=== PATIENT | male | born 1975 | race Caucasian/White ===

== ENCOUNTER 2017-09-05 12:08 | Inpatient (IN) | payer MEDICAID, SELFPAY ==
[2017-09-05] MEDS ORDERED: Octreotide Acetate 1,250 MCG in Sodium Chloride 0.9% 250 ML 250 ML IVPB SCH (12:45)
[2017-09-05] MEDS ORDERED: Sodium Chloride 3% 100 ML IVPB SCH (12:45)
[2017-09-05 12:52] LABS: #Lymphocytes 0.7 thou/uL (1.20-3.40); #Monocytes 0.8 thou/uL (0.11-0.59); #Neutrophils 9.2 thou/uL (1.40-6.50); %Basophils 0.1 % (0.0-1.0); %Eosinophils 0.1 % (0.0-10.0); %Lymphocytes 6.4 % (21.0-51.0); %Monocytes 7.2 % (0.0-10.0); %Neutrophils 86.3 % (42.0-75.0); Hemoglobin 14.1 g/dL (14.0-18.0); Mean Corpuscular HGB CONC 35.2 g/dL (32.0-36.0); Mean Corpuscular Hemoglobin 31.4 pg (27.0-31.0); Mean Corpuscular Volume 89.1 fl (80.0-94.0); Mean Platelet Volume 6.8 fL (7.4-10.4); Platelet Count 128 thou/uL (130-400); RBC Distribution Width 12.4 % (11.5-14.5); Red Blood Cell (RBC) Count 4.49 mill/uL (4.70-6.10); White Blood Cell (WBC) Count 10.7 thou/uL (4.8-10.8)
[2017-09-05] MEDS ORDERED: Pantoprazole 80 MG, Admixture Fee 1 EACH in Sodium Chloride 0.9% 100 ML IVP SCH (13:00)
[2017-09-05 13:08] LABS: Magnesium 1.3 mg/dL (1.6-2.6)
[2017-09-05 13:16] LABS: Troponin I Less than 0.010 ng/mL (< 0.028)
[2017-09-05] MEDS ORDERED: Octreotide Acetate 50 MCG/ML AMP ONE (13:19)
[2017-09-05 13:20] LABS: CKMB 27.8 ng/mL (0-6.6)
[2017-09-05] MEDS ORDERED: Ondansetron HCl/PF 4 MG/2 ML Vial ONE (15:24)
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
[2017-09-05] MEDS ORDERED: Dextrose 50% Abboject 50 ML SYRINGE SLOW IVP PRN (16:01)
[2017-09-05] MEDS ORDERED: Acetaminophen 325 MG TAB PO PRN (16:01)
[2017-09-05] MEDS ORDERED: HumaLOG 300 UNITS/3 ML VIAL SC PRN (16:01)
[2017-09-05] MEDS ORDERED: Dextrose 5% in Water 1,000 ML IV PRN (16:01)
[2017-09-05] MEDS ORDERED: Labetalol HCl 100 MG/20 ML VIAL SLOW IVP PRN (16:01)
[2017-09-05] MEDS ORDERED: hydrALAZINE 20 MG/ML VIAL SLOW IVP PRN (16:01)
[2017-09-05 17:05] VITALS: BMI 28.5
[2017-09-05 17:40] LABS: Hemoglobin 14.7 g/dL (14.0-18.0); Platelet Count 140 thou/uL (130-400)
[2017-09-05 18:03] LABS: Anion Gap 17 mmol/L (10-20); BUN (Urea Nitrogen) 7 mg/dL (8.9-20.6); Calc. Creatinine Clearance 214 mL/min (70-130); Calcium 7.2 mg/dL (7.8-10.44); Carbon Dioxide 18 mmol/L (22-29); Chloride 85 mmol/L (98-107); Estimated GFR-MDRD Greater than 90; Glucose 111 mg/dL (70-105)
[2017-09-05 18:15] LABS: Sodium 115 mmol/L (136-145)
[2017-09-05] MEDS: Multivitamins, Adult 10 ML, Folic Acid 1 MG, Thiamine HCl 100 MG in Dextrose 5 %-0.45 %... IV SCH (18:38)
[2017-09-05] MEDS: Sodium Chloride 0.9% 1,000 ML IV SCH (18:42)
[2017-09-05] MEDS: Ondansetron HCl/PF 4 MG/2 ML Vial IVP PRN (20:18)
[2017-09-05] MEDS: Pantoprazole 40 MG VIAL IVP SCH (20:18)
[2017-09-05] MEDS: Lorazepam 2 MG/ML VIAL SLOW IVP PRN (21:20)
[2017-09-05 21:59] LABS: Anion Gap 17 mmol/L (10-20); BUN (Urea Nitrogen) 7 mg/dL (8.9-20.6); Calc. Creatinine Clearance 198 mL/min (70-130); Calcium 7.1 mg/dL (7.8-10.44); Carbon Dioxide 19 mmol/L (22-29); Chloride 85 mmol/L (98-107); Estimated GFR-MDRD Greater than 90; Glucose 163 mg/dL (70-105); Potassium 4.4 mmol/L (3.5-5.1)
[2017-09-05 22:05] LABS: Sodium 117 mmol/L (136-145)
[2017-09-05 23:58] LABS: Hemoglobin 13.9 g/dL (14.0-18.0); Platelet Count 119 thou/uL (130-400)
[2017-09-06 01:28] LABS: Anion Gap 14 mmol/L (10-20); BUN (Urea Nitrogen) 6 mg/dL (8.9-20.6); Calc. Creatinine Clearance 192 mL/min (70-130); Calcium 7.2 mg/dL (7.8-10.44); Carbon Dioxide 22 mmol/L (22-29); Chloride 86 mmol/L (98-107); Estimated GFR-MDRD Greater than 90; Glucose 120 mg/dL (70-105); Potassium 4.2 mmol/L (3.5-5.1)
[2017-09-06 01:52] LABS: Sodium 118 mmol/L (136-145)
[2017-09-06] MEDS: Ondansetron HCl/PF 4 MG/2 ML Vial IVP PRN ×3 (01:52→17:53)
[2017-09-06] MEDS: Lorazepam 2 MG/ML VIAL SLOW IVP PRN ×4 (02:05→22:53)
[2017-09-06] MEDS: Sodium Chloride 0.9% 1,000 ML IV SCH ×3 (02:10→16:22)
[2017-09-06 05:25] LABS: #Lymphocytes 1.6 thou/uL (1.20-3.40); %Basophils 0.4 % (0.0-1.0); %Eosinophils 0.2 % (0.0-10.0); %Lymphocytes 16.6 % (21.0-51.0); %Monocytes 10.3 % (0.0-10.0); %Neutrophils 72.6 % (42.0-75.0); Hemoglobin 13.6 g/dL (14.0-18.0); Mean Corpuscular HGB CONC 35.8 g/dL (32.0-36.0); Mean Corpuscular Hemoglobin 31.9 pg (27.0-31.0); Mean Corpuscular Volume 89.1 fl (80.0-94.0); Mean Platelet Volume 6.9 fL (7.4-10.4); Platelet Count 112 thou/uL (130-400); RBC Distribution Width 12.4 % (11.5-14.5); Red Blood Cell (RBC) Count 4.27 mill/uL (4.70-6.10); White Blood Cell (WBC) Count 9.7 thou/uL (4.8-10.8)
[2017-09-06 05:49] LABS: Anion Gap 11 mmol/L (10-20); BUN (Urea Nitrogen) 4 mg/dL (8.9-20.6); Calc. Creatinine Clearance 195 mL/min (70-130); Calcium 7.4 mg/dL (7.8-10.44); Carbon Dioxide 26 mmol/L (22-29); Chloride 87 mmol/L (98-107); Estimated GFR-MDRD Greater than 90; Glucose 100 mg/dL (70-105); Potassium 4.1 mmol/L (3.5-5.1); Sodium 120 mmol/L (136-145)
--- NOTE | 2017-09-06 08:12 | PDOC.PN ---
- Subjective Encounter Start Date: 09/06/17 Encounter Start Time: 08:10 Subjective: "so so", calm - Objective MAR Reviewed: Yes Vital Signs & Weight: Vital Signs (12 hours) Temp Pulse Resp BP BP Pulse Ox 09/06/17 04:00 98.2 F 102 H 18 127/76 127/76 93 L 09/06/17 00:00 98.1 F 107 H 20 131/82 131/82 95 09/05/17 21:17 107/65 Weight Weight 216 lb 1 oz I&O: 09/05/17 09/06/17 09/07/17 06:59 06:59 06:59 Output Total 3000 Balance -3000 Result Diagrams: 09/06/17 05:11 09/06/17 05:10 Additional Labs: Accuchecks 09/06/17 09/05/17 09/05/17 04:46 20:15 16:58 POC Glucose 101 142 H 113 H Phys Exam - Physical Examination Neck: no JVD Respiratory: clear to auscultation bilateral Cardiovascular: RRR, no significant murmur Gastrointestinal: soft, non-tender, positive bowel sounds Musculoskeletal: no edema Dx/Plan (1) Hyponatremia Code(s): E87.1 - HYPO-OSMOLALITY AND HYPONATREMIA Status: Acute (2) AA (alcohol abuse) Code(s): F10.10 - ALCOHOL ABUSE, UNCOMPLICATED Status: Acute (3) HTN (hypertension) Code(s): I10 - ESSENTIAL (PRIMARY) HYPERTENSION Status: Chronic Qualifiers: Hypertension type: essential hypertension Qualified Code(s): I10 - Essential (primary) hypertension (4) DM type 2 (diabetes mellitus, type 2) Status: Chronic Qualifiers: Diabetes mellitus terminal clerk insulin use: without terminal clerk use Diabetes mellitus complication status: without complication Qualified Code(s): E11.9 - Type 2 diabetes mellitus without complications - Plan monitor for withdrawal, cont ativan, banana bag -: advance diet, monitor Na -: cont accu/ss/ check HgA1c -: check AM cortisol level -: hemeoccult neg- no GI JOSÉ at this time * .
[2017-09-06] MEDS: Pantoprazole 40 MG VIAL IVP SCH (08:20)
[2017-09-06 08:30] LABS: Hemoglobin A1c 6.5 % (4.0-6.0)
[2017-09-06 09:40] LABS: Anion Gap 12 mmol/L (10-20); BUN (Urea Nitrogen) 4 mg/dL (8.9-20.6); Calc. Creatinine Clearance 207 mL/min (70-130); Calcium 7.4 mg/dL (7.8-10.44); Carbon Dioxide 25 mmol/L (22-29); Chloride 88 mmol/L (98-107); Estimated GFR-MDRD Greater than 90; Glucose 113 mg/dL (70-105); Potassium 3.9 mmol/L (3.5-5.1); Sodium 121 mmol/L (136-145)
[2017-09-06 14:02] LABS: Anion Gap 10 mmol/L (10-20); BUN (Urea Nitrogen) 5 mg/dL (8.9-20.6); Calc. Creatinine Clearance 201 mL/min (70-130); Calcium 7.9 mg/dL (7.8-10.44); Carbon Dioxide 26 mmol/L (22-29); Chloride 93 mmol/L (98-107); Estimated GFR-MDRD Greater than 90; Glucose 110 mg/dL (70-105); Potassium 3.9 mmol/L (3.5-5.1); Sodium 125 mmol/L (136-145)
[2017-09-06] MEDS: Multivitamins, Adult 10 ML, Folic Acid 1 MG, Thiamine HCl 100 MG in Dextrose 5 %-0.45 %... IV SCH (17:47)
[2017-09-07] MEDS: Sodium Chloride 0.9% 1,000 ML IV SCH ×3 (00:25→22:00)
[2017-09-07] MEDS: Ondansetron HCl/PF 4 MG/2 ML Vial IVP PRN ×4 (00:27→20:02)
[2017-09-07] MEDS: Lorazepam 2 MG/ML VIAL SLOW IVP PRN ×5 (03:40→21:41)
[2017-09-07 05:33] LABS: Anion Gap 12 mmol/L (10-20); BUN (Urea Nitrogen) 5 mg/dL (8.9-20.6); Calc. Creatinine Clearance 161 mL/min (70-130); Calcium 8.1 mg/dL (7.8-10.44); Carbon Dioxide 22 mmol/L (22-29); Chloride 97 mmol/L (98-107); Estimated GFR-MDRD Greater than 90; Glucose 209 mg/dL (70-105); Potassium 3.8 mmol/L (3.5-5.1); Sodium 127 mmol/L (136-145)
--- NOTE | 2017-09-07 11:33 | PDOC.PN ---
- Subjective Encounter Start Date: 09/07/17 Encounter Start Time: 11:31 Subjective: still a bit tremuluos, oriented - Objective MAR Reviewed: Yes Vital Signs & Weight: Vital Signs (12 hours) Temp Pulse Resp BP BP BP Pulse Ox 09/07/17 08:00 98.5 F 94 16 130/86 96 09/07/17 04:00 97.9 F 94 18 124/79 94 L 09/07/17 00:00 98.2 F 99 18 115/78 115/78 96 Weight Admit Weight 216 lb 1 oz Weight 216 lb 1 oz I&O: 09/06/17 09/07/17 09/08/17 06:59 06:59 06:59 Intake Total 3690 Output Total 7511 5468 Balance -3000 -0062 Result Diagrams: 09/06/17 05:11 09/07/17 04:42 Additional Labs: Accuchecks 09/06/17 09/06/17 09/06/17 20:50 17:05 11:47 POC Glucose 184 H 154 H 112 H Phys Exam - Physical Examination Neck: no JVD Respiratory: clear to auscultation bilateral Cardiovascular: RRR, no significant murmur Gastrointestinal: soft, non-tender, positive bowel sounds Musculoskeletal: no edema Dx/Plan (1) Hyponatremia Code(s): E87.1 - HYPO-OSMOLALITY AND HYPONATREMIA Status: Acute (2) AA (alcohol abuse) Code(s): F10.10 - ALCOHOL ABUSE, UNCOMPLICATED Status: Acute (3) HTN (hypertension) Code(s): I10 - ESSENTIAL (PRIMARY) HYPERTENSION Status: Chronic Qualifiers: Hypertension type: essential hypertension Qualified Code(s): I10 - Essential (primary) hypertension (4) DM type 2 (diabetes mellitus, type 2) Status: Chronic Qualifiers: Diabetes mellitus long-term insulin use: without watermaster use Diabetes mellitus complication status: without complication Qualified Code(s): E11.9 - Type 2 diabetes mellitus without complications - Plan cont iv saline -: start po ativan, thiamine, folic acid * .
[2017-09-07] MEDS: Lorazepam 0.5 MG TAB PO SCH ×3 (13:41→20:01)
[2017-09-08] MEDS: Ondansetron HCl/PF 4 MG/2 ML Vial IVP PRN ×4 (02:02→20:28)
[2017-09-08] MEDS: Lorazepam 2 MG/ML VIAL SLOW IVP PRN ×4 (02:05→23:34)
[2017-09-08 06:00] LABS: Anion Gap 9 mmol/L (10-20); BUN (Urea Nitrogen) 4 mg/dL (8.9-20.6); Calc. Creatinine Clearance 184 mL/min (70-130); Calcium 8.3 mg/dL (7.8-10.44); Carbon Dioxide 26 mmol/L (22-29); Chloride 96 mmol/L (98-107); Estimated GFR-MDRD Greater than 90; Glucose 241 mg/dL (70-105); Potassium 3.6 mmol/L (3.5-5.1); Sodium 127 mmol/L (136-145)
[2017-09-08] MEDS: Lorazepam 0.5 MG TAB PO SCH ×3 (08:31→20:36)
[2017-09-08] MEDS: Folic Acid 1 MG TAB PO SCH (08:31)
--- NOTE | 2017-09-08 10:17 | PDOC.PN ---
- Subjective Encounter Start Date: 09/08/17 Encounter Start Time: 10:15 Subjective: still tremulous at times, requiring iv ativan, still has some nausea - Objective MAR Reviewed: Yes Vital Signs & Weight: Vital Signs (12 hours) Temp Pulse Resp BP BP Pulse Ox 09/08/17 07:24 98.4 F 97 18 150/95 H 97 09/08/17 04:00 97.4 F L 94 20 137/83 94 L 09/08/17 00:00 150/94 H Weight Admit Weight 216 lb 1 oz Weight 216 lb 1 oz I&O: 09/07/17 09/08/17 09/09/17 06:59 06:59 06:59 Intake Total 3690 3606 Output Total 5452 Balance -1762 3606 Result Diagrams: 09/06/17 05:11 09/08/17 05:15 Additional Labs: Accuchecks 09/08/17 09/07/17 09/07/17 05:14 20:31 16:28 POC Glucose 246 H 184 H 194 H 09/07/17 11:42 POC Glucose 146 H Phys Exam - Physical Examination Constitutional: NAD Neck: no JVD Respiratory: clear to auscultation bilateral Cardiovascular: RRR, no significant murmur Gastrointestinal: soft, non-tender, no distention, positive bowel sounds Musculoskeletal: no edema Dx/Plan (1) Hyponatremia Code(s): E87.1 - HYPO-OSMOLALITY AND HYPONATREMIA Status: Acute (2) AA (alcohol abuse) Code(s): F10.10 - ALCOHOL ABUSE, UNCOMPLICATED Status: Acute (3) HTN (hypertension) Code(s): I10 - ESSENTIAL (PRIMARY) HYPERTENSION Status: Chronic Qualifiers: Hypertension type: essential hypertension Qualified Code(s): I10 - Essential (primary) hypertension (4) DM type 2 (diabetes mellitus, type 2) Status: Chronic Qualifiers: Diabetes mellitus equine breeder insulin use: without custodial use Diabetes mellitus complication status: without complication Qualified Code(s): E11.9 - Type 2 diabetes mellitus without complications (5) Alcohol withdrawal delirium, acute, hyperactive Code(s): F10.231 - ALCOHOL DEPENDENCE WITH WITHDRAWAL DELIRIUM Status: Acute - Plan cont vitamins, increase po ativan, cont prn iv ativan -: Na stuck at 127, check urine electrlyes -: cont protonix, zofran -: cont accu/ss. start metformin when nausea improved * .
[2017-09-08] MEDS: Sodium Chloride 0.9% 1,000 ML IV SCH ×2 (17:03→19:21)
[2017-09-09] MEDS: Ondansetron HCl/PF 4 MG/2 ML Vial IVP PRN ×4 (02:21→20:47)
[2017-09-09 05:14] LABS: Anion Gap 13 mmol/L (10-20); BUN (Urea Nitrogen) 5 mg/dL (8.9-20.6); Calc. Creatinine Clearance 181 mL/min (70-130); Calcium 8.5 mg/dL (7.8-10.44); Carbon Dioxide 22 mmol/L (22-29); Chloride 100 mmol/L (98-107); Estimated GFR-MDRD Greater than 90; Glucose 196 mg/dL (70-105); Potassium 3.8 mmol/L (3.5-5.1); Sodium 131 mmol/L (136-145)
[2017-09-09] MEDS: Lorazepam 2 MG/ML VIAL SLOW IVP PRN ×3 (05:51→22:56)
[2017-09-09] MEDS: Sodium Chloride 0.9% 1,000 ML IV SCH ×2 (05:52→17:02)
[2017-09-09] MEDS: Lorazepam 0.5 MG TAB PO SCH ×3 (08:13→20:47)
[2017-09-09] MEDS: Folic Acid 1 MG TAB PO SCH (08:13)
--- NOTE | 2017-09-09 16:18 | PDOC.PN ---
- Subjective Encounter Start Date: 09/09/17 Encounter Start Time: 16:17 Subjective: Seen and examined -requesting for Iv ativan claiming the po dose itches him -: Not sure why but doesnt make any clinical sense - Objective Vital Signs & Weight: Vital Signs (12 hours) Temp Pulse Resp BP BP BP Pulse Ox 09/09/17 12:00 134/79 09/09/17 11:35 83 16 134/79 09/09/17 08:20 97.9 F 86 16 143/90 H 98 09/09/17 08:00 97.9 F 86 16 143/90 H Weight Admit Weight 216 lb 1 oz Weight 216 lb 1 oz I&O: 09/08/17 09/09/17 09/10/17 06:59 06:59 06:59 Intake Total 3606 3138 Balance 3606 3138 Result Diagrams: 09/06/17 05:11 09/09/17 04:30 Additional Labs: Accuchecks 09/09/17 09/09/17 09/08/17 11:32 05:13 21:09 POC Glucose 145 H 199 H 129 H 09/08/17 15:57 POC Glucose 234 H Phys Exam - Physical Examination Constitutional: NAD HEENT: PERRLA, moist MMs, sclera anicteric, TM's clear, oral pharynx no lesions Neck: no nodes, no JVD, supple, full ROM Respiratory: no wheezing, no rales, no rhonchi, clear to auscultation bilateral Cardiovascular: RRR, no significant murmur, no rub Gastrointestinal: soft, non-tender, no distention, positive bowel sounds Musculoskeletal: no edema Dx/Plan (1) AA (alcohol abuse) Code(s): F10.10 - ALCOHOL ABUSE, UNCOMPLICATED Status: Acute (2) Alcohol withdrawal delirium, acute, hyperactive Code(s): F10.231 - ALCOHOL DEPENDENCE WITH WITHDRAWAL DELIRIUM Status: Acute (3) Hyponatremia Code(s): E87.1 - HYPO-OSMOLALITY AND HYPONATREMIA Status: Acute (4) DM type 2 (diabetes mellitus, type 2) Status: Chronic Qualifiers: Diabetes mellitus terminal press operator insulin use: without half-way use Diabetes mellitus complication status: without complication Qualified Code(s): E11.9 - Type 2 diabetes mellitus without complications (5) HTN (hypertension) Code(s): I10 - ESSENTIAL (PRIMARY) HYPERTENSION Status: Chronic Qualifiers: Hypertension type: essential hypertension Qualified Code(s): I10 - Essential (primary) hypertension - Plan cont current plan of care, plan discussed w/ family, PT/OT, criminal justice social worker I suspect patient is beginning to become dependent on iv ativan -: will limit acces to this med and work towards d/c home * .
[2017-09-09] MEDS ORDERED: Loperamide HCl 2 MG CAP PO PRN (16:51)
[2017-09-09] MEDS ORDERED: Loperamide HCl 2 MG CAP PO SCH (17:00)
[2017-09-10] MEDS: Ondansetron HCl/PF 4 MG/2 ML Vial IVP PRN ×2 (02:09→08:07)
[2017-09-10 05:07] LABS: Prothrombin Time 13.7 SEC (12.0-14.7)
[2017-09-10 05:29] LABS: ALT (SGPT) 36 U/L (8-55); AST (SGOT) 40 U/L (5-34); Albumin 3.5 g/dL (3.5-5.0); Alkaline Phosphatase 62 U/L (40-150); Anion Gap 12 mmol/L (10-20); BUN (Urea Nitrogen) 7 mg/dL (8.9-20.6); Bilirubin, Total 0.8 mg/dL (0.2-1.2); Calc. Creatinine Clearance 172 mL/min (70-130); Calcium 8.6 mg/dL (7.8-10.44); Carbon Dioxide 20 mmol/L (22-29); Chloride 102 mmol/L (98-107); Estimated GFR-MDRD Greater than 90; Glucose 154 mg/dL (70-105); Protein, Total 6.5 g/dL (6.0-8.3); Sodium 130 mmol/L (136-145)
[2017-09-10 05:32] LABS: Band 1 % (5-11); Eosinophils 2 % (0-10); Hemoglobin 12.3 g/dL (14.0-18.0); Lymphocytes 23 % (21-51); MDiff Complete? YES; Mean Corpuscular HGB CONC 34.4 g/dL (32.0-36.0); Mean Corpuscular Hemoglobin 32.4 pg (27.0-31.0); Mean Corpuscular Volume 94.2 fl (80.0-94.0); Mean Platelet Volume 6.9 fL (7.4-10.4); Monocytes 18 % (0-10); Neutrophil 56 % (42-75); Platelet Count 138 thou/uL (130-400); RBC Distribution Width 12.6 % (11.5-14.5); Red Blood Cell (RBC) Count 3.81 mill/uL (4.70-6.10)
[2017-09-10] MEDS: Lorazepam 2 MG/ML VIAL SLOW IVP PRN (07:14)
[2017-09-10] MEDS: Lorazepam 0.5 MG TAB PO SCH ×2 (08:02→14:29)
[2017-09-10] MEDS: Folic Acid 1 MG TAB PO SCH (08:02)
--- NOTE | 2017-09-10 09:30 | PDOC.PN ---
- Subjective Encounter Start Date: 09/10/17 Encounter Start Time: 09:30 Subjective: seen and examined no new complaint - Objective Vital Signs & Weight: Vital Signs (12 hours) Temp Pulse Resp BP BP BP Pulse Ox 09/10/17 08:00 97.6 F 79 18 136/84 97 09/10/17 04:05 124/74 09/10/17 04:00 98.4 F 91 18 124/74 91 L 09/10/17 00:01 97.3 F L 84 18 147/89 H 147/89 H 96 Weight Admit Weight 216 lb 1 oz Weight 216 lb 1 oz I&O: 09/09/17 09/10/17 09/11/17 06:59 06:59 06:59 Intake Total 3138 2167.5 Balance 3138 2167.5 Result Diagrams: 09/10/17 04:23 09/10/17 04:23 Additional Labs: Accuchecks 09/10/17 09/09/17 09/09/17 05:40 21:37 17:08 POC Glucose 135 H 178 H 159 H 09/09/17 11:32 POC Glucose 145 H Phys Exam - Physical Examination Constitutional: NAD HEENT: PERRLA, moist MMs, sclera anicteric, TM's clear Neck: no nodes, no JVD, supple, full ROM Respiratory: no wheezing, no rales, no rhonchi, clear to auscultation bilateral Cardiovascular: RRR, no significant murmur, no rub Gastrointestinal: soft, non-tender, no distention, positive bowel sounds Musculoskeletal: no edema, pulses present Dx/Plan (1) AA (alcohol abuse) Code(s): F10.10 - ALCOHOL ABUSE, UNCOMPLICATED Status: Acute (2) Alcohol withdrawal delirium, acute, hyperactive Code(s): F10.231 - ALCOHOL DEPENDENCE WITH WITHDRAWAL DELIRIUM Status: Acute (3) Hyponatremia Code(s): E87.1 - HYPO-OSMOLALITY AND HYPONATREMIA Status: Acute (4) DM type 2 (diabetes mellitus, type 2) Status: Chronic Qualifiers: Diabetes mellitus home care associate insulin use: without home care associate use Diabetes mellitus complication status: without complication Qualified Code(s): E11.9 - Type 2 diabetes mellitus without complications (5) HTN (hypertension) Code(s): I10 - ESSENTIAL (PRIMARY) HYPERTENSION Status: Chronic Qualifiers: Hypertension type: essential hypertension Qualified Code(s): I10 - Essential (primary) hypertension - Plan cont current plan of care possible d/c today * .
[2017-09-10 12:18] VITALS: BP 134/84; TEMP 97.8
--- NOTE | 2017-09-11 14:09 | DIS ---
SUMMARY: This is a 42-year-old gentleman [place] a laceration on his face, was brought in because of electrolyte abnormalities. In this case severe hyponatremia. Patient was admitted initially, started on hypertonic saline and subsequently transitioned over to normal saline . Patient also gave a history compatible with GI bleed; however, all clinical evaluation of this pat ient were not keeping with GI bleed, as patient's hemoccult negative and hemoglobin level remained st able. Therefore, no further gastrointestinal workup was carried out. Patient was monitored closely for alcohol withdrawal and placed on Ativan. Initially, patient becoming dependent on IV Ativan, ref using p.o. Ativan, however, having maintained sustained clinical improvement. Patient was felt to be stable for discharge and was subsequently discharged on 09/10. Please for the details of the phys ical findings of discharge, refer to my notes in the chart. Patient was discharged on the following medications: Xanax 2 mg p.o. b.i.d., folic acid 1 mg p.o. da juan francisco. DISCHARGE INSTRUCTIONS: 1. Follow up with the primary care physicians. 2. Stay away from alcohol. 3. Represent here in case of any relapse or deterioration in clinical condition. Total time spent including [id number] encounter 31 minutes.
--- NOTE | 2017-09-30 20:41 | EKG ---
Test Reason : Blood Pressure : / mmHG Vent. Rate : 090 BPM Atrial Rate : 090 BPM P-R Int : 136 ms QRS Dur : 092 ms QT Int : 404 ms P-R-T Axes : 068 032 059 degrees QTc Int : 494 ms Normal sinus rhythm Septal infarct , age undetermined Abnormal ECG Confirmed by JAHAIRA BEACH ([id number]), editor publications MARIAH FIGUEROA ([id number]) on 09/30/2017 8:40:53 PM Referred By: Confirmed By:JAHAIRA BEACH
== END 2017-09-10 14:45 | disposition home or self-care (01) | DRG 897 ==
LOC: ERS 12:08 → T4-B 16:15
PROVIDERS: ADMIT Internal Medicine; ATTEND Internal Medicine
DX: F10.231 Alcohol dependence with withdrawal delirium (principal); E87.1 Hypo-osmolality and hyponatremia; S01.111A Laceration without foreign body of right eyelid and periocular area, initial encounter; E11.9 Type 2 diabetes mellitus without complications; W01.0XXA Fall on same level from slipping, tripping and stumbling without subsequent striking against object, initial encounter; Y92.019 Unspecified place in single-family (private) house as the place of occurrence of the external cause; I10 Essential (primary) hypertension; Z86.73 Personal history of transient ischemic attack (TIA), and cerebral infarction without residual deficits; F41.9 Anxiety disorder, unspecified; F10.229 Alcohol dependence with intoxication, unspecified; Y90.8 Blood alcohol level of 240 mg/100 ml or more; E78.00 Pure hypercholesterolemia, unspecified
CPT/HCPCS: 36415; 36416; 80048; 80053; 80307; 82274; 82533; 83036; 83735; 85025; 85610; 93005; 96361; 96365; 96366; 96375; C9113; J2060; J2354; J2405; J3411; J7042; J7050; J7131